=== PATIENT | female | born 1990 | race Caucasian/White ===

== ENCOUNTER → 2018-06-22 | Outpatient (CLI) | payer OTHER ==
[~2018-06-22] MED LIST: UNKNOWN ANTIBIOTIC PO
[2018-06-22 12:19] LABS: HEMATOCRIT 42.6 % (37-47); MEAN CELL VOLUME 90.1 fL (80-100); MEAN CORPUSCULAR HEMOGLOBIN 31.7 pg (25-34); MEAN CORPUSCULAR HGB CONC 35.2 g/dl (32-36); MEAN PLATELET VOLUME 9.5 fL (7.4-10.4); PLATELET COUNT 325 K/uL (130-400); RED CELL DISTRIBUTION WIDTH CV 13.2 % (11.5-14.5); RED CELL DISTRIBUTION WIDTH SD 43.9 fL (36.4-46.3); WHITE BLOOD COUNT 4.08 K/uL (4.8-10.8)
[2018-06-22 12:42] LABS: BASO % 0.7 %; BASO ABS # 0.03 K/uL (0-0.2); EOS % 3.2 %; EOS ABS # 0.13 K/uL (0-0.5); LYMPH % 51.7 %; LYMPH ABS # 2.11 K/uL (1.2-3.4); MONO % 7.8 %; MONO ABS # 0.32 K/uL (0.11-0.59); NEUT % 36.6 %; NEUT ABS # 1.49 K/uL (1.4-6.5)
[2018-06-22 12:46] LABS: HEMOGLOBIN A1C 5.4 % (4.5-5.6)
[2018-06-22 13:01] LABS: ALBUMIN 3.9 gm/dl (3.4-5.0); ALKALINE PHOSPHATASE 60 U/L (45-117); ALT/SGPT 50 U/L (12-78); AST/SGOT 36 U/L (15-37); BLOOD UREA NITROGEN 8 mg/dl (7-18); CALCIUM 8.7 mg/dl (8.5-10.1); CARBON DIOXIDE 24 mmol/L (21-32); CHOLESTEROL 174 mg/dl (0-200); CREATININE 0.99 mg/dl (0.60-1.20); GLUCOSE 97 mg/dl (70-99); LDL CHOLESTEROL CALCULATED 92 mg/dl; POTASSIUM 3.5 mmol/L (3.5-5.1); SODIUM 137 mmol/L (136-145); TOTAL PROTEIN 7.6 gm/dl (6.4-8.2); URIC ACID 4.8 mg/dl (2.6-7.2)
== END | disposition home or self-care (01) ==
LOC: C.LAB1850 10:32
PROVIDERS: ATTEND Nurse Practitioner Adult Health
DX: Z00.00 Encounter for general adult medical examination without abnormal findings (principal); B19.20 Unspecified viral hepatitis C without hepatic coma; Z11.3 Encounter for screening for infections with a predominantly sexual mode of transmission

== ENCOUNTER → 2018-06-22 | Outpatient (CLI) | payer OTHER | END | disposition home or self-care (01) | LOC: C.PAPS 14:04 | PROVIDERS: ATTEND Obstetrics & Gynecology | DX: Z01.411 Encounter for gynecological examination (general) (routine) with abnormal findings (principal); R87.610 Atypical squamous cells of undetermined significance on cytologic smear of cervix (ASC-US) ==

== ENCOUNTER → 2018-06-22 | Outpatient (CLI) | payer OTHER | END | disposition home or self-care (01) | LOC: C.LABSPEC 14:10 | PROVIDERS: ATTEND Obstetrics & Gynecology | DX: Z11.3 Encounter for screening for infections with a predominantly sexual mode of transmission (principal) ==

== ENCOUNTER → 2018-06-23 | Outpatient (CLI) | payer OTHER | END | disposition home or self-care (01) | LOC: C.LAB1850 11:28 | PROVIDERS: ATTEND Internal Medicine Infectious Disease | DX: B19.20 Unspecified viral hepatitis C without hepatic coma (principal) ==

== ENCOUNTER 2024-03-06 15:16 | Observation (INO) ==
[2024-03-06] MEDS: ONDANSETRON INJ 2 MG/ML 2 ML VIAL IV STA (15:37)
[2024-03-06] MEDS: SODIUM CHLORIDE 0.9% 1,000 ML IV SCH (15:37)
--- NOTE | 2024-03-06 15:54 | Emergency Department Note ---
Impression & Plan Acute pancreatitis, Intractable nausea and vomiting, Hypokalemia ED Provider Note NAME: ODIN LINDSAY AGE: 33 SEX: F : 1990 ARRIVES VIA: Walk-In INFORMANT: Patient, nursing triage note from [id number] ED PROVIDER(S): Johnathan Iyer MD CHIEF COMPLAINT: [Abdominal pain, nausea vomiting MEDICAL DECISION MAKING: Patient presented due to concern for nausea vomiting. IV was established and blood work was obtained. Patient was ordered IV fluids and IV Zofran. Patient still had persistent symptoms and the patient was ordered IV IV Compazine Benadryl and more fluids patient was also given capsaicin. The patient still has symptoms was ordered IV Phenergan and IV morphine. Patient's lipase is [address] abdomen pelvis ordered which was obtained. Patient with potassium of 2.8 some mild elevation of AST at 115. Patient was ordered IV potassium and magnesium was ordered. Given the patient's pancreatitis and associated nausea vomiting I did speak the on-call hospital service Dr. Perez and the patient was admitted to the medicine service. Of note CT abdomen pelvis shows normal appearance of the pancreas. Discussion w/ other healthcare providers: Dr. Perez inpatient medicine service Prior /Outside records reviewed: None Differential diagnosis: Gastroenteritis, food borne illness, infection, appendicitis, diverticulitis, inflammatory bowel disease, obstruction among others were considered. Diagnostics, as interpreted by me: ECG: None Cardiac monitoring: An order was placed for continuous cardiac monitoring. The monitor shows a rate of 65 with sinus rhythm. Patient was placed on pulse oximetry Medical decision rules: None Imaging studies: I informally interpreted the patient's Chest and abdominal x-ray which does not show obvious pneumonia or pneumothorax and no free air under the diaphragm. with formal report to follow. HPI: Patient presents due to concern for epigastric discomfort and nausea and vomiting. The patient states that her symptoms began yesterday. They have been fairly constant the patient has been vomiting since yesterday. Patient states that nothing makes her symptoms any better. The patient does smoke tobacco does admit to using occasional CBD. The patient last drank alcohol 2 nights ago and had a 4 [place]. Patient did trial some Dramamine today but without any improvement in symptoms. Patient denies any blood in the urine or stool. No dysuria or hematuria. The patient denies any falls or trauma. Patient states that ever since she had her fifth child that she is always had some stomach issues. PAST MEDICAL HISTORY: See Below PAST SURGICAL HISTORY: See Below SOCIAL HISTORY: See Below HOME MEDICATIONS: See Below ALLERGIES: See Below VITALS: See Below PHYSICAL EXAMINATION: GENERAL: Uncomfortable in appearance. EYE EXAM: Normal conjunctiva. PERRL, no anisocoria and EOM's grossly intact w/o pain. OROPHARYNX: Moist mucus membranes, grossly normal dentition. NECK: Trachea midline, no stridor. Supple, no nuchal rigidity, no adenopathy, non-tender. No signs of meningismus. FROM of the neck with good chin to chest and neck extension. LUNGS: Clear to auscultation. Normal chest wall mechanics. HEART: NSR, no MRG. ABDOMEN: Abdomen soft, epigastric and right upper quadrant pain without lower abdominal pain, no masses, no rebound or guarding. BACK: No CVA TTP. SKIN: No rashes and no bruising. UPPER EXTREMITIES: Upper extremities are grossly normal. LOWER EXTREMITIES: Grossly normal, no edema. NEURO EXAM: A&O x3, cranial nerves II-XII grossly intact, normal speech, moves all 4 extremities. Past Med/Surg History Medical History Anemia Hepatitis C Surgical History Status post wisdom tooth extraction History of tooth extraction History of tonsillectomy and adenoidectomy History of D&C D&E x 2 History of section x2 Family History Mother Anxiety Depression Hypertension Lung disease Father Anxiety Depression Hypertension Myocardial infarction Brother Depression Diabetes Sister Depression Grandmother Breast cancer Other Cancer Gallbladder disease Heart disease History of cervical cancer Kidney disease Ovarian cancer Seizure Social History Smoking Status: Current every day smoker Tobacco Type: Cigarettes Do You Dip or Chew Tobacco: No; Preferred Language: [place] marital status: Single Current Living Situation Comment: lives with 3 children, no pets. current occupational status: unemployed Feels Safe at Home: Yes Allergies Allergies Allergy/AdvReac Type Severity Reaction Status Date / Time cefaclor Allergy Severe SWELLING Verified 03/06/24 17:35 amoxicillin [From Augmentin] Allergy Intermediate PURPLE Verified 03/06/24 17:35 HIVES clavulanic acid Allergy Intermediate PURPLE Verified 03/06/24 17:35 HIVES Penicillins Allergy Intermediate PURPLE Verified 03/06/24 17:35 HIVES copper Allergy Mild RASH Verified 03/06/24 17:35 cyanocobalamin (vitamin B12) Allergy Mild RASH Verified 03/06/24 17:35 folic acid Allergy Mild RASH Verified 03/06/24 17:35 iron Allergy Mild RASH Verified 03/06/24 17:35 niacinamide Allergy Mild RASH Verified 03/06/24 17:35 pyridoxine Allergy Mild RASH Verified 03/06/24 17:35 riboflavin (vitamin B2) Allergy Mild RASH Verified 03/06/24 17:35 thiamine (vitamin B1) Allergy Mild RASH Verified 03/06/24 17:35 vitamin A Allergy Mild RASH Verified 03/06/24 17:35 vitamin E (d-alpha Allergy Mild RASH Verified 03/06/24 17:35 tocopherol) zinc Allergy Mild RASH Verified 03/06/24 17:35 clarithromycin Allergy Unknown Unknown Verified 03/06/24 17:35 Ascorbate Allergy Mild RASH Uncoded 03/06/24 17:35 Home Meds Home Medications Medication Instructions Recorded Confirmed dimenhydrinate 25 mg chewable 25 - 50 mg PO DIRECTED PRN 03/06/24 03/06/24 tablet (Dramamine) NEEDED PER PT Results & Data (ED) Vital Signs Vital Signs - 24 hr 03/06/24 15:19 03/06/24 16:26 03/06/24 17:33 Temperature 36 C L Temperature Source Temporal Artery Scan Pulse Rate Pulse Rate [Right Finger] 73 50 L Respiratory Rate 18 19 16 Respiratory Effort / Characteristics Non-Labored Spontaneous Non-Labored Non-Labored Spontaneous Respiratory Depth Normal Normal Normal Blood Pressure [Right Arm] 120/98 140/90 Blood Pressure Mean [Right Arm] 105 106 Pulse Oximetry 99 100 97 Oxygen Delivery Method Room Air Room Air Room Air Sepsis Recent Fever Within 48 Hours No Sepsis New/Unexplained Change in Mental Status No Sepsis Action Taken by Nursing No Action Required 03/06/24 18:01 03/06/24 18:16 Temperature Temperature Source Pulse Rate 51 L Pulse Rate [Right Finger] 54 L Respiratory Rate 19 Respiratory Effort / Characteristics Respiratory Depth Blood Pressure [Right Arm] Blood Pressure Mean [Right Arm] Pulse Oximetry 98 Oxygen Delivery Method Room Air Sepsis Recent Fever Within 48 Hours Sepsis New/Unexplained Change in Mental Status Sepsis Action Taken by Alf Medications Current Medication List: was personally reviewed by me Laboratory Data Attestation: I reviewed the patient's lab results. 03/06/24 15:35 03/06/24 15:35 Lab Results 03/06/24 Range/Units 15:35 WBC 10.92 H (4.8-10.8) K/ul RBC 4.85 (4.20-5.40) M/uL Hgb 14.7 (12.0-16.0) g/dl Hct 42.9 (37.0-47.0) % MCV 88.5 (80.0-100.0) fL MCH 30.3 (25.0-34.0) pg MCHC 34.3 (32.0-36.0) g/dL RDW Std Deviation 47.6 H (36.4-46.3) fL RDW Coeff of Edwin 14.7 H (11.5-14.5) % Plt Count 435 H (130-400) K/uL MPV 9.3 L (9.4-12.4) fL Immature Gran % (Auto) 0.3 % Neut % (Auto) 58.9 % Lymph % (Auto) 33.8 % [place] % (Auto) 6.7 % Eos % (Auto) 0.1 % Baso % (Auto) 0.2 % Neut # (Auto) 6.44 (1.40-6.50) K/uL Lymph # (Auto) 3.69 H (1.20-3.40) K/uL [place] # (Auto) 0.73 H (0.11-0.59) K/uL Eos # (Auto) 0.01 (0.00-0.50) K/uL Baso # (Auto) 0.02 (0.00-0.20) K/uL Immature Gran # (Auto) 0.03 (0.01-0.20) K/uL Sodium 138 (136-145) mmol/L Potassium 2.8 L (3.5-5.1) mmol/L Chloride 106 (98-107) mmol/L Carbon Dioxide 21 (21-32) mmol/L Anion Gap 11 (3-11) BUN 18 (6-23) mg/dl Creatinine 1.10 (0.6-1.2) mg/dl Est Cr Clr Drug Dosing Not Reportable Est GFR ( Amer) 76.4 ml/min Est GFR (Non-Af Amer) 65.9 ml/min BUN/Creatinine Ratio 16.4 (10-20) Glucose 108 H (70-99(Fasting)) mg/dl Calcium 9.5 (8.6-10.3) mg/dl Total Bilirubin 0.7 (0.2-1.0) mg/dl AST 115 H (13-39) U/L ALT 35 (7-52) U/L Alkaline Phosphatase 71 (34-104) U/L Total Protein 7.9 (6.0-8.3) gm/dl Albumin 4.8 (3.4-5.0) gm/dl Globulin 3.1 (2.5-4.0) gm/dl Albumin/Globulin Ratio 1.5 (0.9-2) Lipase 230 H (11-82) U/L Administered Medications Discontinued Medications Capsaicin (Capsaicin Cr 0.075% 60 Gm Tube) 1 appln EXT NOW STA Stop: 03/06/24 16:13 Last Admin: 03/06/24 16:24 Dose: 1 appln Documented By: ASW Diphenhydramine HCl (Diphenhydramine 50 Mg/Ml Vial) 25 mg IV NOW STA Stop: 03/06/24 16:12 Last Admin: 03/06/24 16:24 Dose: 25 mg Documented By: ASW Sodium Chloride (Nss) 1,000 mls @ 999 mls/hr IV .Q1H1M RADAMES Stop: 03/06/24 16:30 Last Infusion: 03/06/24 16:30 Dose: Infused Documented By: Admin: 03/06/24 15:37 Dose: 999 mls/hr Documented By: ASW Sodium Chloride (Nss) 1,000 mls @ 999 mls/hr IV .Q1H1M ONE Stop: 03/06/24 17:11 Last Infusion: 03/06/24 17:25 Dose: Infused Documented By: Admin: 03/06/24 16:24 Dose: 999 mls/hr Documented By: ASW Promethazine HCl (Phenergan) 12.5 mg in 50.5 mls @ 202 mls/hr IV NOW STA Stop: 03/06/24 17:39 Last Infusion: 03/06/24 17:59 Dose: Infused Documented By: Admin: 03/06/24 17:32 Dose: 202 mls/hr Documented By: ASW Ioversol (Optiray 320 100ml) 92 ml IV ONCE ONE Stop: 03/06/24 18:47 Last Admin: 03/06/24 18:47 Dose: 92 ml Documented By: QUINTIN Morphine Sulfate (Morphine Sulfate 4 Mg/Ml 1 Ml Carp\Vial) 4 mg IV NOW STA Stop: 03/06/24 18:19 Last Admin: 03/06/24 18:25 Dose: 4 mg Documented By: ASW Ondansetron HCl (Ondansetron Inj 2 Mg/Ml 2 Ml Vial) 4 mg IV NOW STA Stop: 03/06/24 15:27 Last Admin: 03/06/24 15:37 Dose: 4 mg Documented By: ASW Prochlorperazine (Prochlorperazine 5 Mg/Ml 2 Ml Vial) 10 mg IV NOW STA Stop: 03/06/24 16:12 Last Admin: 03/06/24 16:24 Dose: 10 mg Documented By: ASW Imaging Data Radiologist's Impression: Chest/Abdomen X-ray 03/06/24 16:12 PA CHEST RADIOGRAPH AND UPRIGHT AND SUPINE AP RADIOGRAPHS OF THE ABDOMEN CLINICAL HISTORY: Upper abdominal pain, nausea and vomiting. COMPARISON STUDY: Chest radiograph November 17, 2020. CT of the abdomen and pelvis July 12, 2006. FINDINGS: Lungs are clear. There is no pneumothorax or pleural effusion. Pulmonary vascularity is normal. Cardiomediastinal silhouette is normal. There is no evidence for free air. The bowel gas pattern is normal. Small pelvic calcifications favor phleboliths. IMPRESSION: 1. No free air or evidence for a bowel obstruction. 2. No acute cardiopulmonary findings. ACT 112: Negative or not required by law. Electronically signed by: Ryan Morton M.D. 03/06/2024 5:11 PM Abdomen/Pelvis CT 03/06/24 17:43 CT OF THE ABDOMEN AND PELVIS WITH CONTRAST CLINICAL HISTORY: Epigastric pain. Nausea and vomiting. Elevated lipase. COMPARISON STUDY: CT of the abdomen and pelvis July 12, 2006. Abdominal series performed earlier today.] Ultrasound November 08, 2016. TECHNIQUE: Following IV administration of 92 mL of Optiray, axial images of the abdomen and pelvis were obtained from the lung bases to the proximal femurs. Images were reviewed in the axial, sagittal, and coronal planes. IV contrast was administered without complication. Automated exposure control was utilized for the study. A dose lowering technique was utilized adhering to the principles of ALARA. CT DOSE: 728.47 mGy.cm FINDINGS: Lung bases are unremarkable. No pneumatosis, free air or portal venous gas is present. There is no biliary or pancreatic ductal dilatation. There is periportal edema. Spleen, adrenal glands and kidneys are unremarkable with the exception of a subcentimeter left lower pole renal lesion which is too small to characterize. This is likely benign. The pancreas is unremarkable by CT. The gland enhances homogeneously. There is no peripancreatic infiltration or fluid. There are no peripancreatic fluid collections. Caliber and wall thickness of small and large bowel are normal. The appendix is normal. Trace fluid within the pelvis is likely physiologic. Peripherally enhancing 2.5 cm right adnexal lesion favors a dominant follicle. There is no lymphadenopathy. There are no fluid collections. IMPRESSION: 1. Normal CT appearance of the pancreas. 2. No bowel obstruction. No bowel wall thickening. Normal appendix. 3. Trace pelvic fluid, likely physiologic. Dominant follicle within the right ovary. ACT 112: Negative or not required by law. Electronically signed by: Ryan Morton M.D. 03/06/2024 7:08 PM Discharge Plan Visit Data Chief Complaint: GI Assessment Stated Complaint: NAUSEA, ABDOMINAL PAIN, VOMITING ED Provider: Johnathan Iyer Discharge Problem: Acute pancreatitis, Intractable nausea and vomiting, Hypokalemia Forms Stand Alone Forms: [employer] Prescriptions Prescriptions: No Action Dramamine 25 mg Tablet,Chewable 25 - 50 mg PO DIRECTED PRN (Reason: NEEDED PER PT) Referrals Referrals: Augustin Vicente MD [Primary Care Provider] - Discharge Problem: Acute pancreatitis Qualifiers: Pancreatitis type: alcohol induced Acute pancreatitis complication: no infection or necrosis Qualified Code(s): K85.20 - Alcohol induced acute pancreatitis without necrosis or infection
[2024-03-06 16:12] LABS: Basophils # (auto) 0.02 K/uL (0.00-0.20); Basophils % (auto) 0.2 %; Eosinophils # (auto) 0.01 K/uL (0.00-0.50); Eosinophils % (auto) 0.1 %; Hematocrit (blood only) 42.9 % (37.0-47.0); Hemoglobin 14.7 g/dl (12.0-16.0); Immature Granulocytes # (auto) 0.03 K/uL (0.01-0.20); Immature Granulocytes % (auto) 0.3 %; Lymphocytes # (auto) 3.69 K/uL (1.20-3.40); Lymphocytes % (auto) 33.8 %; Mean Corpuscular Hemoglobin 30.3 pg (25.0-34.0); Mean Corpuscular Hgb Conc 34.3 g/dL (32.0-36.0); Mean Corpuscular Volume 88.5 fL (80.0-100.0); Mean Platelet Volume 9.3 fL (9.4-12.4); Monocytes # (auto) 0.73 K/uL (0.11-0.59); Monocytes % (auto) 6.7 %; Neutrophils # (auto) 6.44 K/uL (1.40-6.50); Neutrophils % (auto) 58.9 %; Platelet Count 435 K/uL (130-400); RDW Coefficient of Variation 14.7 % (11.5-14.5); RDW Standard Deviation 47.6 fL (36.4-46.3); Red Blood Count 4.85 M/uL (4.20-5.40); White Blood Count 10.92 K/ul (4.8-10.8)
[2024-03-06 16:17] LABS: Alanine Aminotransferase 35 U/L (7-52); Albumin Globulin Ratio 1.5 (0.9-2); Albumin Level 4.8 gm/dl (3.4-5.0); Alkaline Phosphatase 71 U/L (34-104); Anion Gap 11 (3-11); Aspartate Aminotransferase 115 U/L (13-39); BUN Creatinine Ratio 16.4 (10-20); Bilirubin,Total 0.7 mg/dl (0.2-1.0); Blood Urea Nitrogen 18 mg/dl (6-23); Calcium 9.5 mg/dl (8.6-10.3); Carbon Dioxide 21 mmol/L (21-32); Chloride 106 mmol/L (98-107); Est GFR (African American) 76.4 ml/min; Est GFR (Non-African American) 65.9 ml/min; Globulin 3.1 gm/dl (2.5-4.0); Glucose 108 mg/dl (70-99(Fasting)); Lipase 230 U/L (11-82); Potassium 2.8 mmol/L (3.5-5.1); Sodium 138 mmol/L (136-145); Total Protein 7.9 gm/dl (6.0-8.3)
[2024-03-06] MEDS: CAPSAICIN CR 0.075% 60 GM TUBE EXT STA (16:24)
[2024-03-06] MEDS: SODIUM CHLORIDE 0.9% 1,000 ML IV ONE (16:24)
[2024-03-06] MEDS: PROCHLORPERAZINE 5 MG/ML 2 ML VIAL IV STA (16:24)
[2024-03-06] MEDS: diphenhydrAMINE 50 MG/ML VIAL IV STA (16:24)
--- NOTE | 2024-03-06 17:13 | XRay Report ---
PA CHEST RADIOGRAPH AND UPRIGHT AND SUPINE AP RADIOGRAPHS OF THE ABDOMEN CLINICAL HISTORY: Upper abdominal pain, nausea and vomiting. COMPARISON STUDY: Chest radiograph November 17, 2020. CT of the abdomen and pelvis July 12, 2006. FINDINGS: Lungs are clear. There is no pneumothorax or pleural effusion. Pulmonary vascularity is no rmal. Cardiomediastinal silhouette is normal. There is no evidence for free air. The bowel gas patter n is normal. Small pelvic calcifications favor phleboliths. IMPRESSION: 1. No free air or evidence for a bowel obstruction. 2. No acute cardiopulmonary findings. ACT 112: Negative or not required by law. Electronically signed by: Ryan Morton M.D. 03/06/2024 5:11 PM
[2024-03-06] MEDS: PROMETHAZINE 12.5 MG/50.5 ML BAG IV STA (17:32)
[2024-03-06] MEDS: MoRPHine SULFATE 4 MG/ML 1 ML CARP\\VIAL IV STA (18:25)
[2024-03-06] MEDS: OPTIRAY 320 100ml IV ONE (18:47)
--- NOTE | 2024-03-06 19:10 | CT Scan Report ---
CT OF THE ABDOMEN AND PELVIS WITH CONTRAST CLINICAL HISTORY: Epigastric pain. Nausea and vomiting. Elevated lipase. COMPARISON STUDY: CT of the abdomen and pelvis July 12, 2006. Abdominal series performed earlier today.] Ultrasound November 08, 2016. TECHNIQUE: Following IV administration of 92 mL of Optiray, axial images of the abdomen and pelvis we re obtained from the lung bases to the proximal femurs. Images were reviewed in the axial, sagittal, and coronal planes. IV contrast was administered without complication. Automated exposure control wa s utilized for the study. A dose lowering technique was utilized adhering to the principles of ALARA . CT DOSE: 728.47 mGy.cm FINDINGS: Lung bases are unremarkable. No pneumatosis, free air or portal venous gas is present. Ther e is no biliary or pancreatic ductal dilatation. There is periportal edema. Spleen, adrenal glands an d kidneys are unremarkable with the exception of a subcentimeter left lower pole renal lesion which i s too small to characterize. This is likely benign. The pancreas is unremarkable by CT. The gland enh ances homogeneously. There is no peripancreatic infiltration or fluid. There are no peripancreatic fl uid collections. Caliber and wall thickness of small and large bowel are normal. The appendix is norm al. Trace fluid within the pelvis is likely physiologic. Peripherally enhancing 2.5 cm right adnexal lesion favors a dominant follicle. There is no lymphadenopathy. There are no fluid collections. IMPRESSION: 1. Normal CT appearance of the pancreas. 2. No bowel obstruction. No bowel wall thickening. Normal appendix. 3. Trace pelvic fluid, likely physiologic. Dominant follicle within the right ovary. ACT 112: Negative or not required by law. Electronically signed by: Ryan Morton M.D. 03/06/2024 7:08 PM
--- NOTE | 2024-03-06 19:11 | History & Physical Report ---
Date of Service March 06, 2024 Assessment & Plan (1) Intractable nausea and vomiting: Plan: Intractable nausea and vomiting that began the morning of 03/05 Mild leukocytosis at 10.92 with lymphocytic predominance; afebrile Elevated lipase at 230 EKG ordered to check QTc CT A/P revealed normal appearance of pancreas; no bowel obstruction; normal appendix; no biliary or pancreatic ductal dilation Serum test negative Zofran as needed for N/V Compazine 5 mg IV as needed for refractory N/V Capsaicin topically as needed for abdominal pain Acetaminophen as needed for pain/fever A.m. CBC, BMP (2) Hypokalemia: Plan: K 2.8 on arrival Likely secondary to GI losses and vomiting K-riders 10mEq x 3 given Trend BMP x 1; Recheck a.m. K (3) History of methamphetamine use: Plan: UDS ordered, pending (4) Hepatitis C: Plan: Contracted via IV drug use in 2016 (5) Marijuana use: Plan: Patient endorses recent marijuana use Unclear if this is contributing (6) Burning with urination: Plan: Mild; potential UTI Urinalysis pending Plan Disposition: Obs -admit to [facility] telemetry Full code Clear liquid diet VTE PPx: SCDs History of Present Illness Chief Complaint: GI Assessment Primary Care Provider: Augustin Vicente MD Stephanie is a 33-year-old female with PMH of , meth use, IV drug use, and hepatitis C. She presented for nausea and vomiting that first developed the morning of 03/05. Patient woke up around 4 AM, felt incredibly nauseous, and reports she stuck her finger down her throat. She initially came to the emergency department that day for N/V, but given how busy the emergency department was she decided to go home. She returned the following day for acute onset of uncontrollable vomiting. She reports she has been having stomach issues, ever since she had her daughter in March 2023; 5 kids. She is unsure when her last menstrual period is, but notes she did have tubal ligation surgery. No sick contacts. History of meth use, but denies recent meth use. History of hep C contracted in 2016 due to IV drugs. Patient does endorse smoking marijuana. She notes that she was drinking a [employer] [place] the night before of her vomiting. She denies history of heavy drinking, or history of pancreatic/gallbladder issues. Of note, the patient developed hyperemesis syndrome when she was with her daughter. She recently moved here from just outside [facility] with her and children, and does not have any prior hospital records available. She endorsed 10/10 abdominal pain with radiation to the lower back earlier in the day, but none at present. She tried taking Al[place] and Dramamine at home, which she reports helped a little bit. She has not been tolerating solids or fluids; cannot keep water down. She tried eating [employer] earlier, but reported she got sick. No recent change in diet prior to being sick. She does note that she might have a yeast infection. Patient is mildly bradycardic at 51 bpm at time admission; SpO2 98% on RA. ED course: NSS 1000 mL IV Phenergan 12.5 mg IV Zofran 4 mg IV Diphenhydramine 25 mg Prochlorperazine 10 mg Morphine 4 mg IV Topical capsaicin ROS: Patient endorses bilous vomiting, unclear hematemesis (dark colored emesis), abdominal pain (resolved), burning with urination, and numbness in fingers. Patient denies fever, chills, night-sweats, chest pain, SOB, cough, coffee- ground emesis, and blood in urine/stool. Allergies Allergy/AdvReac Type Severity Reaction Status Date / Time cefaclor Allergy Severe SWELLING Verified 03/06/24 17:35 amoxicillin [From Augmentin] Allergy Intermediate PURPLE Verified 03/06/24 17:35 HIVES clavulanic acid Allergy Intermediate PURPLE Verified 03/06/24 17:35 HIVES Penicillins Allergy Intermediate PURPLE Verified 03/06/24 17:35 HIVES copper Allergy Mild RASH Verified 03/06/24 17:35 cyanocobalamin (vitamin B12) Allergy Mild RASH Verified 03/06/24 17:35 folic acid Allergy Mild RASH Verified 03/06/24 17:35 iron Allergy Mild RASH Verified 03/06/24 17:35 niacinamide Allergy Mild RASH Verified 03/06/24 17:35 pyridoxine Allergy Mild RASH Verified 03/06/24 17:35 riboflavin (vitamin B2) Allergy Mild RASH Verified 03/06/24 17:35 thiamine (vitamin B1) Allergy Mild RASH Verified 03/06/24 17:35 vitamin A Allergy Mild RASH Verified 03/06/24 17:35 vitamin E (d-alpha Allergy Mild RASH Verified 03/06/24 17:35 tocopherol) zinc Allergy Mild RASH Verified 03/06/24 17:35 clarithromycin Allergy Unknown Unknown Verified 03/06/24 17:35 Ascorbate Allergy Mild RASH Uncoded 03/06/24 17:35 Home Medications Medication Instructions Recorded Confirmed Type dimenhydrinate 25 mg chewable 25 - 50 mg PO DIRECTED PRN 03/06/24 03/06/24 History tablet (Dramamine) NEEDED PER PT Past Med/Surg History Medical History Anemia Hepatitis C Surgical History Status post wisdom tooth extraction History of tooth extraction History of tonsillectomy and adenoidectomy History of D&C D&E x 2 History of section x2 Family History Mother Anxiety Depression Hypertension Lung disease Father Anxiety Depression Hypertension Myocardial infarction Brother Depression Diabetes Sister Depression Grandmother Breast cancer Other Cancer Gallbladder disease Heart disease History of cervical cancer Kidney disease Ovarian cancer Seizure Social History Smoking Status: Former smoker Tobacco Type: Cigarettes Do You Dip or Chew Tobacco: No; Hx Alcohol Use: Yes Hx Substance Use: Yes Preferred Language: Maori Communication Ability: Effective Lens Hardener Required: No Beliefs That Will Affect Care: None marital status: Single Current Living Situation: Family Current Living Situation Comment: lives with 3 children, no pets. current occupational status: unemployed Feels Safe at Home: Yes Review of Systems Review of Systems: See HPI above Physical Exam Physical Exam: General: no acute distress; non-toxic appearing; cooperative; SpO2 100% on RA HEENT: normocephalic, atraumatic; no scleral icterus; PERRLA; moist mucus membrane; poor dentition; vision and hearing grossly intact Neck: supple; no lymphadenopathy; trachea midline Skin: warm, dry without signs of tenting; no cyanosis; no rashes, bruising, lesions, or erythema noted CV: chest wall NTP; RRR; S1/S2 normal; no murmurs/rubs/gallops; pulses intact and symmetric at radial, DP, and PT Lungs: no acute respiratory distress; symmetrical chest wall expansion; clear breath sounds across all lung egan w/o adventitious sounds; no wheezing ABD: Soft; all 4 quadrants are mildly TTP; positive Dunbar sign; BS present; no rebound/guarding; no distention; negative CVA tenderness MSK: no tics or fasciculations; no edema noted in the LEs b/l, nonerythematous Neuro: A&Ox3; flight of ideas; fluent speech; sensation grossly intact in the LEs b/l Results & Data Results & Data Vital Signs (Past 12 Hours) Vital Signs Temp Pulse Pulse Resp BP Pulse Ox O2 Del Method 03/06/24 18:16 51 L 03/06/24 18:01 54 L 19 98 Room Air 03/06/24 17:33 50 L 16 140/90 97 Room Air 03/06/24 16:26 73 19 120/98 100 Room Air 03/06/24 15:19 36 C L 18 99 Room Air Laboratory Results Abnormal lab results 03/06/24 Range/Units 15:35 WBC 10.92 H (4.8-10.8) K/ul RDW Std Deviation 47.6 H (36.4-46.3) fL RDW Coeff of Edwin 14.7 H (11.5-14.5) % Plt Count 435 H (130-400) K/uL MPV 9.3 L (9.4-12.4) fL Lymph # (Auto) 3.69 H (1.20-3.40) K/uL Parke # (Auto) 0.73 H (0.11-0.59) K/uL Potassium 2.8 L (3.5-5.1) mmol/L Glucose 108 H (70-99(Fasting)) mg/dl AST 115 H (13-39) U/L Lipase 230 H (11-82) U/L Diagnostic Findings Chest/Abdomen X-ray 03/06/24 16:12 PA CHEST RADIOGRAPH AND UPRIGHT AND SUPINE AP RADIOGRAPHS OF THE ABDOMEN CLINICAL HISTORY: Upper abdominal pain, nausea and vomiting. COMPARISON STUDY: Chest radiograph November 17, 2020. CT of the abdomen and pelvis July 12, 2006. FINDINGS: Lungs are clear. There is no pneumothorax or pleural effusion. Pulmonary vascularity is normal. Cardiomediastinal silhouette is normal. There is no evidence for free air. The bowel gas pattern is normal. Small pelvic calcifications favor phleboliths. IMPRESSION: 1. No free air or evidence for a bowel obstruction. 2. No acute cardiopulmonary findings. ACT 112: Negative or not required by law. Electronically signed by: Ryan Morton M.D. 03/06/2024 5:11 PM Code Status & VTE Plan Code Status Full code VTE Prophylaxis Plan VTE Prophylaxis will be ordered: Yes Supervising Physician Co-Signing Physician Notes Attending addendum: I have supervised the PAOLA's activities, and agree with the H&P unless as otherwise noted. Assessment and Plan: Intractable nausea and vomiting- Symptoms began the morning of 03/05 Mildly elevated lipase at 230, with CT abdomen pelvis revealing normal appearance of pancreas Zofran 4 mg IV every 6 hours as needed Compazine 5 mg IV every 6 hours as needed nausea vomit not responding to Zofran Capsaicin applied topically to abdomen as needed Acetaminophen 650 mg by mouth every 6 hours as needed for mild pain or fever Urine drug screen is pending, history of marijuana use IV fluids as noted Hypokalemia- Potassium 2.8 on admission Secondary to GI losses Potassium chloride 10 mEq IV riders x 3 Recheck laboratories in a.m. History of methamphetamine use- Urine drug screen ordered and pending PG Care Time/CCT Total # of Minutes Spent Total Time Spent with Patient: Total time spent is greater than 50% in coordination of care (as documented) at patient's floor/unit and/or counseling patient: [place] [address] INT INP/OBS CARE 3/75MIN Patient Type New Medical Decision Making High Complexity Diagnoses Intractable nausea and vomiting R11.2 Hypokalemia E87.6 History of methamphetamine use F15.91 Hepatitis C B19.20 Marijuana use F12.90 Burning with urination R30.0
[2024-03-06] MEDS: POTASSIUM CHLORIDE / WTR 10 MEQ/100 ML PLCT IV SCH (19:53)
[2024-03-06 20:37] LABS: Pregnancy Test, Serum Negative (Negative)
[2024-03-06] MEDS ORDERED: PROCHLORPERAZINE 5 MG in SYRINGE 4 ML IV PRN (20:59)
[2024-03-06] MEDS: ONDANSETRON INJ 2 MG/ML 2 ML VIAL IV PRN (21:47)
[2024-03-06 22:16] LABS: Anion Gap 4 (3-11); BUN Creatinine Ratio 16.7 (10-20); Blood Urea Nitrogen 13 mg/dl (6-23); Calcium 7.5 mg/dl (8.6-10.3); Carbon Dioxide 21 mmol/L (21-32); Chloride 114 mmol/L (98-107); Est GFR (African American) 115.8 ml/min; Est GFR (Non-African American) 99.9 ml/min; Glucose 94 mg/dl (70-99(Fasting)); Potassium 3.5 mmol/L (3.5-5.1); Sodium 139 mmol/L (136-145)
[2024-03-06] MEDS: ACETAMINOPHEN 325 MG TAB PO PRN (22:46)
[2024-03-06] MEDS: CAPSAICIN CR 0.075% 60 GM TUBE EXT PRN (23:01)
[2024-03-06] MEDS: POTASSIUM CHLORIDE / WTR 10 MEQ/100 ML PLCT IV ONE (23:27)
[2024-03-07 05:58] LABS: Basophils # (auto) 0.03 K/uL (0.00-0.20); Basophils % (auto) 0.4 %; Eosinophils # (auto) 0.02 K/uL (0.00-0.50); Eosinophils % (auto) 0.2 %; Hematocrit (blood only) 37.9 % (37.0-47.0); Hemoglobin 12.9 g/dl (12.0-16.0); Immature Granulocytes # (auto) 0.02 K/uL (0.01-0.20); Immature Granulocytes % (auto) 0.2 %; Lymphocytes # (auto) 3.59 K/uL (1.20-3.40); Lymphocytes % (auto) 42.1 %; Mean Corpuscular Hemoglobin 30.5 pg (25.0-34.0); Mean Corpuscular Volume 89.6 fL (80.0-100.0); Monocytes # (auto) 0.58 K/uL (0.11-0.59); Monocytes % (auto) 6.8 %; Neutrophils # (auto) 4.29 K/uL (1.40-6.50); Neutrophils % (auto) 50.3 %; Platelet Count 330 K/uL (130-400); RDW Coefficient of Variation 14.6 % (11.5-14.5); RDW Standard Deviation 48.6 fL (36.4-46.3); Red Blood Count 4.23 M/uL (4.20-5.40); White Blood Count 8.53 K/ul (4.8-10.8)
[2024-03-07 06:19] LABS: Calcium 7.6 mg/dl (8.6-10.3); Creatinine Clr Calc Pharmacy 97.2 ml/min; Est GFR (African American) 102.9 ml/min; Est GFR (Non-African American) 88.8 ml/min; Magnesium 1.9 mg/dl (1.7-2.4); Potassium 3.7 mmol/L (3.5-5.1)
--- NOTE | 2024-03-07 07:10 | Discharge Summary ---
Date of Service March 07, 2024 Admission HPI Per Admitting Provider Stephanie is a 33-year-old female with PMH of , meth use, IV drug use, and hepatitis C. She presented for nausea and vomiting that first developed the morning of 03/05. Patient woke up around 4 AM, felt incredibly nauseous, and reports she stuck her finger down her throat. She initially came to the emergency department that day for N/V, but given how busy the emergency department was she decided to go home. She returned the following day for acute onset of uncontrollable vomiting. She reports she has been having stomach issues, ever since she had her daughter in March 2023; 5 kids. She is unsure when her last menstrual period is, but notes she did have tubal ligation surgery. No sick contacts. History of meth use, but denies recent meth use. History of hep C contracted in 2016 due to IV drugs. Patient does endorse smoking marijuana. She notes that she was drinking a [employer] [place] the night before of her vomiting. She denies history of heavy drinking, or history of pancreatic/gallbladder issues. Of note, the patient developed hyperemesis syndrome when she was with her daughter. She recently moved here from just outside [facility] with her and children, and does not have any prior hospital records available. She endorsed 10/10 abdominal pain with radiation to the lower back earlier in the day, but none at present. She tried taking [place] and Dramamine at home, which she reports helped a little bit. She has not been tolerating solids or fluids; cannot keep water down. She tried eating [employer] earlier, but reported she got sick. No recent change in diet prior to being sick. She does note that she might have a yeast infection. Patient is mildly bradycardic at 51 bpm at time admission; SpO2 98% on RA. ED course: NSS 1000 mL IV Phenergan 12.5 mg IV Zofran 4 mg IV Diphenhydramine 25 mg Prochlorperazine 10 mg Morphine 4 mg IV Topical capsaicin ROS: Patient endorses bilous vomiting, unclear hematemesis (dark colored emesis), abdominal pain (resolved), burning with urination, and numbness in fingers. Patient denies fever, chills, night-sweats, chest pain, SOB, cough, coffee- ground emesis, and blood in urine/stool. Principal Diagnosis Nausea Discharge Data Allergies Allergy/AdvReac Type Severity Reaction Status Date / Time cefaclor Allergy Severe SWELLING Verified 03/06/24 17:35 amoxicillin [From Augmentin] Allergy Intermediate PURPLE Verified 03/06/24 17:35 HIVES clavulanic acid Allergy Intermediate PURPLE Verified 03/06/24 17:35 HIVES Penicillins Allergy Intermediate PURPLE Verified 03/06/24 17:35 HIVES copper Allergy Mild RASH Verified 03/06/24 17:35 cyanocobalamin (vitamin B12) Allergy Mild RASH Verified 03/06/24 17:35 folic acid Allergy Mild RASH Verified 03/06/24 17:35 iron Allergy Mild RASH Verified 03/06/24 17:35 niacinamide Allergy Mild RASH Verified 03/06/24 17:35 pyridoxine Allergy Mild RASH Verified 03/06/24 17:35 riboflavin (vitamin B2) Allergy Mild RASH Verified 03/06/24 17:35 thiamine (vitamin B1) Allergy Mild RASH Verified 03/06/24 17:35 vitamin A Allergy Mild RASH Verified 03/06/24 17:35 vitamin E (d-alpha Allergy Mild RASH Verified 03/06/24 17:35 tocopherol) zinc Allergy Mild RASH Verified 03/06/24 17:35 clarithromycin Allergy Unknown Unknown Verified 03/06/24 17:35 Ascorbate Allergy Mild RASH Uncoded 03/06/24 17:35 Consultations 03/06/24 22:21 ED Decision to Admit Stat Ordered Studies 03/06/24 17:43 CT abd pelvis IV con only Stat Hospital Course (1) Intractable nausea and vomiting: Intractable nausea and vomiting that began the morning of 03/05 Mild leukocytosis at 10.92 with lymphocytic predominance; afebrile Elevated lipase at 230 EKG ordered to check QTc CT A/P revealed normal appearance of pancreas; no bowel obstruction; normal appendix; no biliary or pancreatic ductal dilation Serum test negative Zofran as needed for N/V Compazine 5 mg IV as needed for refractory N/V Capsaicin topically as needed for abdominal pain Acetaminophen as needed for pain/fever A.m. CBC, BMP (2) History of methamphetamine use: UDS ordered, pending (3) Hepatitis C: Contracted via IV drug use in 2016 (4) Marijuana use: Patient endorses recent marijuana use Unclear if this is contributing (5) Burning with urination: Mild; potential UTI Urinalysis pending Plan Plan as per above. Pt left AMA at 0700 03/07/24. Total Time Total Time Spent Total Time Spent (In Minutes): see attending attestation Discharge Plan Discharge Items Patient Disposition: Against Medical Advice Reason For Visit: INTRACTABLE N/V Discharge Diagnosis: Nausea Activity: Per Instructions section Non-emergency contact: Primary Care Provider Call non-emergency contact if: you have any medication questions and your symptoms worsen Follow-up/Referrals: Augustin Vicente MD [Primary Care Provider] - Diet: Regular Addtl Attending Provider Instructions: Pt left AMA- 03/07. Plan was for trial of solids this morning to ensure good PO intake prior to leaving. Pending Studies at Discharge: Yes Stand-Alone Forms: [place], Smoking Cessation Medications and DC Order Prescriptions: Continued Dramamine 25 mg Tablet,Chewable 25 - 50 mg PO DIRECTED PRN (Reason: NEEDED PER PT) Discharge Orders: Left Against Medical Advice (Routine); Ordered 03/07/24 Ordered By: Ana Paula Perez Admission Data Admit Date/Time: 03/06/24 20:05 Attending Provider: Woodrow May Admit Provider: Sacha Hess Primary Care Provider: Augustin Vicente Other Providers: Sacha Hess
--- NOTE | 2024-03-07 10:50 | Electrocardiogram Report ---
Test Reason : Blood Pressure : / mmHG Vent. Rate : 054 BPM Atrial Rate : 054 BPM P-R Int : 138 ms QRS Dur : 062 ms QT Int : 498 ms P-R-T Axes : 073 075 111 degrees QTc Int : 472 ms Sinus bradycardia Septal infarct (cited on or before 06-MAR-2024) Abnormal ECG When compared with ECG of 17-NOV-2020 13:28, No significant change was found Confirmed by Inder Capps ([id number]) on 03/07/2024 10:49:28 AM Referred By: REFERRED SELF Confirmed By:Inder Capps
--- NOTE | 2024-03-07 20:05 | Billing Data ---
Date of Service March 07, 2024 Coding Level of Care Code 90522 IN/OBS DISCH 30 MIN/LESS
== END 2024-03-07 06:44 | disposition left against medical advice (07) ==
LOC: ED 15:16 → EDINP 15:16 → SUATTDRO 20:05 → 2N 20:54
DX: B19.20 Unspecified viral hepatitis C without hepatic coma; Z88.1 Allergy status to other antibiotic agents; Z88.0 Allergy status to penicillin; F15.91 Other stimulant use, unspecified, in remission; F17.210 Nicotine dependence, cigarettes, uncomplicated; Z53.29 Procedure and treatment not carried out because of patient's decision for other reasons; E87.6 Hypokalemia; R11.2 Nausea with vomiting, unspecified; F12.90 Cannabis use, unspecified, uncomplicated; Z88.8 Allergy status to other drugs, medicaments and biological substances; K85.20 Alcohol induced acute pancreatitis without necrosis or infection; R30.0 Dysuria